=== PATIENT | male | born 1945 | race African-American/Black ===

== ENCOUNTER 2017-07-07 21:17 | Inpatient (IN) | payer MEDICARE, MEDICAID ==
[~2017-07-07] VITALS: Ht 170.2 cm; Wt 73.0 kg
[~2017-07-07 21:17] MED LIST: PHEN100C4 PO
[2017-07-07] MEDS ORDERED: SODIUM CHLORIDE 0.9% 1,000 ML IV ONE (22:57)
[2017-07-07 23:40] LABS: BASOPHILS % 0.4 % (0.0-2.0); EOSINOPHILS % 0.2 % (0.0-5.0); HEMATOCRIT. 37.7 % (42.0-52.0); HEMOGLOBIN. 12.7 g/dL (14.0-18.0); LYMPHOCYTES % 10.2 % (20.0-50.0); MEAN CORPUSCULAR HEMOGLOBIN 31.6 pg (28.0-32.0); MEAN CORPUSCULAR VOLUME 93.9 fL (80.0-94.0); MONOCYTES % 5.3 % (2.0-8.0); NEUTROPHILS % 83.9 % (40.0-76.0); RED BLOOD CELL COUNT 4.02 mill/uL (4.7-6.1); RED CELL DISTRIBUTION WIDTH 13.5 % (11.6-14.6)
[2017-07-07 23:54] LABS: CARBON DIOXIDE 29 mEq/L (21-32); CHLORIDE 102 mEq/L (98-107)
[2017-07-08 00:36] LABS: PLATELET 109 x1000/uL (130-400)
[2017-07-08] MEDS ORDERED: SODIUM CHLORIDE 0.9% 1,000 ML IV SCH (01:10)
[2017-07-08] MEDS ORDERED: PHENYTOIN SODIUM 500 MG in SODIUM CHLORIDE 0.9% 50 ML IV ONE (01:15)
[2017-07-08 06:50] VITALS: BP 157/76
[2017-07-08 08:00] VITALS: BP 121/79
[2017-07-08] MEDS ORDERED: LORAZEPAM 2MG/ML CPJ IV PRN (09:00)
[2017-07-08] MEDS ORDERED: HYDROCODONE/ACETAMINOPHEN 5/325MG TABLET PO PRN (09:00)
[2017-07-08] MEDS ORDERED: ACETAMINOPHEN 325MG TABLET PO PRN (09:00)
[2017-07-08] MEDS ORDERED: ONDANSETRON HCL 4MG/2ML VIAL IV PRN (09:00)
[2017-07-08] MEDS ORDERED: CLONIDINE 0.1MG TABLET PO PRN (09:00)
[2017-07-08] MEDS ORDERED: POTASSIUM CHLORIDE 20MEQ TABLET SR PO SCH (09:15)
[2017-07-08] MEDS: ASPIRIN 81MG EC TABLET PO SCH (11:44)
[2017-07-08] MEDS: SODIUM CHLORIDE 0.9% 1,000 ML IV SCH ×2 (11:44→21:51)
[2017-07-08] MEDS: ENOXAPARIN 40MG/0.4ML SYR SUBCUT SCH (11:45)
[2017-07-08 12:00] VITALS: BP 156/66
[2017-07-08 13:01] LABS: CREATINE KINASE 974 IU/L (39-308)
[2017-07-08] MEDS: PHENYTOIN SODIUM EXTENDED 100MG CAPSULE PO SCH ×2 (15:05→21:46)
[2017-07-08] MEDS ORDERED: HYDR12.529 PO (15:07)
[2017-07-08] MEDS ORDERED: AMLO10TA80 PO (15:08)
[2017-07-08] MEDS ORDERED: GABA-529 PO (15:08)
[2017-07-08] MEDS ORDERED: OMEP20CA10 PO (15:09)
[2017-07-08 16:00] VITALS: BP 138/73
[2017-07-08 20:00] VITALS: BP 140/80
[2017-07-09] VITALS: BP 146/86
[2017-07-09 04:00] VITALS: BP 124/73
[2017-07-09] MEDS: PHENYTOIN SODIUM EXTENDED 100MG CAPSULE PO SCH (06:20)
[2017-07-09 08:00] VITALS: BP 145/79
[2017-07-09] MEDS: ENOXAPARIN 40MG/0.4ML SYR SUBCUT SCH (08:47)
[2017-07-09] MEDS: ASPIRIN 81MG EC TABLET PO SCH (08:48)
[2017-07-09 09:12] LABS: BASOPHILS % 0.9 % (0.0-2.0); HEMOGLOBIN. 12.5 g/dL (14.0-18.0); LYMPHOCYTES % 32.2 % (20.0-50.0); MEAN CORPUSCULAR VOLUME 94.4 fL (80.0-94.0); MONOCYTES % 7.9 % (2.0-8.0); RED BLOOD CELL COUNT 3.92 mill/uL (4.7-6.1)
[2017-07-09 09:49] LABS: CARBON DIOXIDE 25 mEq/L (21-32); CHLORIDE 103 mEq/L (98-107)
[2017-07-09 10:41] LABS: MEAN PLATELET VOLUME 11.1 fl (7.4-10.4); PLATELET 97 x1000/uL (130-400)
[2017-07-09] MEDS ORDERED: POTASSIUM CHLORIDE 20MEQ TABLET SR PO NR (11:15)
[2017-07-09] MEDS: SODIUM CHLORIDE 0.9% 1,000 ML IV SCH (11:30)
[2017-07-09 11:36] VITALS: BP 137/86
[2017-07-09 12:00] VITALS: BP 137/86
== END 2017-07-09 13:45 | disposition home or self-care (01) | DRG 53 ==
LOC: ER 21:29 → 8WST 07-08 01:11 → EDBEDREQ 07-08 01:18 → EDBEDREQTM 07-08 01:18 → ENRESERV 07-08 03:22
PROVIDERS: ADMIT Hospitalist; ATTEND Hospitalist
DX: G40.409 Other generalized epilepsy and epileptic syndromes, not intractable, without status epilepticus (principal); I10 Essential (primary) hypertension; E87.6 Hypokalemia; Z86.73 Personal history of transient ischemic attack (TIA), and cerebral infarction without residual deficits; Z91.19 Patient's noncompliance with other medical treatment and regimen
CPT/HCPCS: 36415; 70450; 71010; 80053; 80185; 82550; 85025; 93005; 93970; 96374; 99285; J1165; J1650; J2060; J7030

== ENCOUNTER 2018-10-19 08:16 | Inpatient (IN) | payer MEDICARE, MEDICAID ==
[~2018-10-19] VITALS: Ht 182.9 cm; Wt 47.0 kg
[~2018-10-19 08:16] MED LIST changes: +AMLO10TA80 PO; +GABA-529 PO; +HYDR12.529 PO; +OMEP20CA10 PO
[2018-10-19] MEDS ORDERED: IPRATROPIUM/ALBUTEROL 0.5-3(2.5)MG/3ML NEB HHN ONE (08:30)
[2018-10-19] MEDS ORDERED: METHYLPREDNISOLONE SOD SUCC 125 MG/2 ML VIAL IV ONE (08:30)
[2018-10-19 09:06] LABS: CHLORIDE 103 mEq/L (98-107)
[2018-10-19 09:11] LABS: BASOPHILS % 0.1 % (0.0-2.0); HEMATOCRIT. 49.9 % (42.0-52.0); HEMOGLOBIN. 16.3 g/dL (14.0-18.0); LYMPHOCYTES % 10.2 % (20.0-50.0); MEAN CORPUSCULAR HEMOGLOBIN 30.4 pg (28.0-32.0); MEAN CORPUSCULAR VOLUME 92.6 fL (80.0-94.0); MEAN PLATELET VOLUME 10.3 fl (7.4-10.4); MONOCYTES % 8.2 % (2.0-8.0); NEUTROPHILS % 81.5 % (40.0-76.0); PLATELET 267 x1000/uL (130-400); RED BLOOD CELL COUNT 5.39 mill/uL (4.7-6.1); RED CELL DISTRIBUTION WIDTH 14.4 % (11.6-14.6)
[2018-10-19] MEDS ORDERED: LEVOFLOXACIN 750MG PREMIX 150 ML IV ONE (09:45)
[2018-10-19] MEDS ORDERED: MAGNESIUM/ALUMINUM HYDROXIDE/SIMETHICONE 30ML UDC PO PRN (12:30)
[2018-10-19] MEDS ORDERED: GUAIFENESIN 200MG/10ML SUGAR FREE UDC PO PRN (12:30)
[2018-10-19] MEDS ORDERED: NA PHOS,M-B/NA PHOS,DI-BA ENEMA 118ML PR PRN (12:30)
[2018-10-19] MEDS ORDERED: HYDROCODONE/ACETAMINOPHEN 5/325MG TABLET PO PRN (12:30)
[2018-10-19] MEDS ORDERED: HYDROMORPHONE HCL/PF 2MG/ML CPJ IV PRN (12:30)
[2018-10-19] MEDS ORDERED: CLONIDINE 0.1MG TABLET PO PRN (12:30)
[2018-10-19] MEDS ORDERED: SODIUM CHLORIDE 0.45% 1,000 ML IV SCH (13:00)
[2018-10-19] MEDS ORDERED: ACET-2178 PO (13:21)
[2018-10-19] MEDS ORDERED: D-ME473S8 MT (13:21)
[2018-10-19] MEDS ORDERED: AMLO10TA80 PO (13:21)
[2018-10-19] MEDS ORDERED: AMOX-405 PO (13:21)
[2018-10-19 13:26] VITALS: BP 138/81
[2018-10-19] MEDS ORDERED: PHEN100C4 PO (13:28)
[2018-10-19] MEDS ORDERED: ALBUTEROL (0.083%) 2.5MG/3ML NEB HHN PRN (14:45)
[2018-10-19 16:05] VITALS: BP 156/85
[2018-10-19] MEDS: ENOXAPARIN 40MG/0.4ML SYR SUBCUT SCH (17:44)
[2018-10-19] MEDS: DEXT 5%/0.45% NACL 1000ML 1,000 ML IV SCH (18:26)
[2018-10-19 20:00] VITALS: BP 181/91
[2018-10-19] MEDS: AMLODIPINE 5MG TABLET PO SCH (21:00)
[2018-10-19] MEDS: IPRATROPIUM/ALBUTEROL 0.5-3(2.5)MG/3ML NEB INH PRN (21:21)
[2018-10-19] MEDS ORDERED: HYDRALAZINE 20MG/ML VIAL IV PRN (22:30)
[2018-10-20] VITALS (72 sets, daily range): BP systolic 45–151; BP diastolic 25–89
[2018-10-20] MEDS: LORAZEPAM 2MG/ML CPJ IV PRN ×2 (00:46→05:29)
[2018-10-20] MEDS: IPRATROPIUM/ALBUTEROL 0.5-3(2.5)MG/3ML NEB HHN SCH ×2 (00:50→20:31)
[2018-10-20 01:04] LABS: CHLORIDE 104 mEq/L (98-107)
[2018-10-20] MEDS: IPRATROPIUM/ALBUTEROL 0.5-3(2.5)MG/3ML NEB INH PRN (02:25)
[2018-10-20 03:52] LABS: BG BASE EXCESS -0.4 mmol/L (-2.0-2.0); BG CARBOXYHEMOGLOBIN 0.5 % (0.5-1.5); BG DEOXYHEMOGLOBIN 6.1 % (0.0-5.0); BG FRACTION INSPIRED OXYGEN 32; BG METHEMOGLOBIN 0.7 % (0.0-1.5); BG OXYGEN SATURATION 93.8 % (92.0-98.5); BG OXYHEMOGLOBIN 92.7 % (94.0-97.0); BG PCO2 129.6 mmHg (35.0-45.0); BG PH 7.049 (7.350-7.450); BG PO2 99.1 mmHg (75.0-100.0); BG SAMPLE SITE LEFT RADIAL; BG TOTAL HEMOGLOBIN 15.8 g/dL (12.0-18.0); BG VENT MODE NASAL CANNULA
[2018-10-20 04:45] LABS: BG BASE EXCESS -3.2 mmol/L (-2.0-2.0); BG CARBOXYHEMOGLOBIN 0.3 % (0.5-1.5); BG DEOXYHEMOGLOBIN 5.9 % (0.0-5.0); BG FRACTION INSPIRED OXYGEN 50; BG HCO3 ACT 21.1 mmol/L (22.0-26.0); BG METHEMOGLOBIN 0.2 % (0.0-1.5); BG OXYGEN SATURATION 94.1 % (92.0-98.5); BG OXYHEMOGLOBIN 93.6 % (94.0-97.0); BG PCO2 35.6 mmHg (35.0-45.0); BG SAMPLE SITE RIGHT RADIAL; BG TIDAL VOLUME(mL) 400 mL; BG TOTAL HEMOGLOBIN 15.6 g/dL (12.0-18.0); BG VENT MODE VENT - A/C; BG VENT RATE 18 set
[2018-10-20 05:43] LABS: HEMATOCRIT. 46.7 % (42.0-52.0); HEMOGLOBIN. 15.2 g/dL (14.0-18.0); MEAN CORPUSCULAR HEMOGLOBIN 30.4 pg (28.0-32.0); RED BLOOD CELL COUNT 5.02 mill/uL (4.7-6.1); RED CELL DISTRIBUTION WIDTH 14.6 % (11.6-14.6)
[2018-10-20 05:53] LABS: CHLORIDE 104 mEq/L (98-107)
[2018-10-20 06:03] LABS: LDL CHOLESTEROL 55 mg/dL (5-100)
[2018-10-20 06:05] LABS: T4 FREE 1.54 ng/dL (0.76-1.46)
[2018-10-20 06:06] LABS: HDL CHOLESTEROL 50 mg/dL (40-59)
[2018-10-20] MEDS ORDERED: LEVETIRACETAM 500 MG in SODIUM CHLORIDE 0.9% 100 ML IV SCH (06:30)
[2018-10-20] MEDS: PROPOFOL 10MG/ML 100ML 100 ML IV PRN ×2 (07:57→15:45)
[2018-10-20 09:00] LABS: PLATELET ESTIMATE NORMAL
[2018-10-20 09:02] LABS: PLATELET 241 x1000/uL (130-400)
[2018-10-20] MEDS: ENOXAPARIN 40MG/0.4ML SYR SUBCUT SCH (09:37)
[2018-10-20] MEDS ORDERED: PROPOFOL 10MG/ML 100ML 100 ML IV PRN (11:00)
[2018-10-20 11:21] LABS: CREATINE KINASE 290 IU/L (39-308)
[2018-10-20] MEDS: ASPIRIN 81MG EC TABLET PO SCH (11:55)
[2018-10-20] MEDS: AMLODIPINE 5MG TABLET PO SCH ×2 (11:55→21:00)
[2018-10-20] MEDS: PANTOPRAZOLE SODIUM 40 MG/VIAL IV SCH (11:56)
[2018-10-20] MEDS: DEXT 5%/0.45% NACL 1000ML 1,000 ML IV SCH (11:57)
[2018-10-20] MEDS ORDERED: VANCOMYCIN 1 G PREMIX 200 ML IV NR (14:00)
[2018-10-20] MEDS: PIPERACILLIN/TAZ 2.25G PREMIX 50 ML IV SCH ×2 (14:41→22:55)
[2018-10-20] MEDS: BUDESONIDE 0.5MG/2ML NEB HHN SCH (15:47)
[2018-10-20] MEDS ORDERED: PHENYTOIN 100 MG/4 ML UDC NG NR (16:15)
[2018-10-20] MEDS: PHENYTOIN 100 MG/4 ML UDC NG SCH (22:55)
[2018-10-20] MEDS ORDERED: PHENYTOIN 100 MG/4 ML UDC ONE (22:58)
[2018-10-21] VITALS (81 sets, daily range): BP systolic 98–145; BP diastolic 54–84
[2018-10-21] MEDS: IPRATROPIUM/ALBUTEROL 0.5-3(2.5)MG/3ML NEB HHN SCH ×5 (00:51→20:23)
[2018-10-21] MEDS: PROPOFOL 10MG/ML 100ML 100 ML IV PRN ×2 (01:12→18:55)
[2018-10-21] MEDS: BUDESONIDE 0.5MG/2ML NEB HHN SCH ×2 (03:36→08:44)
[2018-10-21] MEDS: IPRATROPIUM/ALBUTEROL 0.5-3(2.5)MG/3ML NEB INH PRN (03:38)
[2018-10-21] MEDS: PHENYTOIN 100 MG/4 ML UDC NG SCH ×3 (06:37→22:28)
[2018-10-21] MEDS: VANCOMYCIN 750 MG PREMIX 150 ML IV SCH (06:38)
[2018-10-21] MEDS: PIPERACILLIN/TAZ 2.25G PREMIX 50 ML IV SCH ×2 (06:38→14:00)
[2018-10-21 07:03] LABS: HEMATOCRIT. 45.4 % (42.0-52.0); HEMOGLOBIN. 14.9 g/dL (14.0-18.0); MEAN CORPUSCULAR HEMOGLOBIN 30.5 pg (28.0-32.0); MEAN CORPUSCULAR VOLUME 93.2 fL (80.0-94.0); MEAN PLATELET VOLUME 10.4 fl (7.4-10.4); PLATELET 166 x1000/uL (130-400); RED BLOOD CELL COUNT 4.87 mill/uL (4.7-6.1)
[2018-10-21 07:08] LABS: CHLORIDE 106 mEq/L (98-107)
[2018-10-21 07:46] LABS: CLARITY URINE TURBID (CLEAR); COLOR URINE YELLOW (YELLOW); KETONES URINE NEGATIVE (NEGATIVE); LEUKOCYTE ESTERASE URINE NEGATIVE (NEGATIVE); NITRITE URINE NEGATIVE (NEGATIVE); OCCULT BLOOD URINE 3+ (NEGATIVE); PROTEIN URINE TRACE (NEGATIVE); SPECIFIC GRAVITY URINE 1.018 (1.005-1.030); UROBILINOGEN URINE 0.2 E.U./dL (0.2-1.0)
[2018-10-21 07:57] LABS: *AMPHETAMINES SCREEN URINE NEGATIVE (NEGATIVE); *BARBITURATES SCREEN URINE NEGATIVE (NEGATIVE); *BENZODIAZEPINES SCREEN URINE NEGATIVE (NEGATIVE); *COCAINE SCREEN URINE NEGATIVE (NEGATIVE); METHADONE URINE SCREEN NEGATIVE (NEGATIVE); OPIATES URINE SCREEN NEGATIVE (NEGATIVE)
[2018-10-21 07:58] LABS: CANNABINOID URINE SCREEN NEGATIVE (NEGATIVE); PHENCYCLIDINE URINE SCREEN NEGATIVE (NEGATIVE)
[2018-10-21 08:25] LABS: PLATELET ESTIMATE NORMAL
[2018-10-21 08:57] LABS: BG CARBOXYHEMOGLOBIN 0.5 % (0.5-1.5); BG DEOXYHEMOGLOBIN 0.6 % (0.0-5.0); BG FRACTION INSPIRED OXYGEN 60; BG HCO3 ACT 26.4 mmol/L (22.0-26.0); BG METHEMOGLOBIN 0.5 % (0.0-1.5); BG OXYGEN SATURATION 99.4 % (92.0-98.5); BG OXYHEMOGLOBIN 98.4 % (94.0-97.0); BG PCO2 36.2 mmHg (35.0-45.0); BG PO2 191.9 mmHg (75.0-100.0); BG SAMPLE SITE RIGHT BRACHIAL; BG TIDAL VOLUME(mL) 400 mL; BG TOTAL HEMOGLOBIN 14.2 g/dL (12.0-18.0); BG VENT MODE VENT - A/C; BG VENT RATE 18 set
[2018-10-21] MEDS: ASPIRIN 81MG EC TABLET PO SCH (09:32)
[2018-10-21] MEDS: PANTOPRAZOLE SODIUM 40 MG/VIAL IV SCH (09:32)
[2018-10-21] MEDS: AMLODIPINE 5MG TABLET PO SCH ×2 (09:32→22:28)
[2018-10-21] MEDS: DEXT 5%/0.45% NACL 1000ML 1,000 ML IV SCH ×2 (09:32→22:28)
[2018-10-21] MEDS: ENOXAPARIN 40MG/0.4ML SYR SUBCUT SCH (09:32)
[2018-10-21] MEDS: THIAMINE HCL 100MG TABLET GT SCH (14:01)
[2018-10-21] MEDS: PIPERACILLIN/TAZ 3.375G PREMIX 50 ML IV SCH (22:27)
[2018-10-22] VITALS (46 sets, daily range): BP systolic 94–148; BP diastolic 52–85
[2018-10-22] MEDS: PROPOFOL 10MG/ML 100ML 100 ML IV PRN ×4 (01:11→21:55)
[2018-10-22] MEDS: VANCOMYCIN 750 MG PREMIX 150 ML IV SCH ×2 (01:11→14:30)
[2018-10-22] MEDS: IPRATROPIUM/ALBUTEROL 0.5-3(2.5)MG/3ML NEB HHN SCH ×6 (03:27→20:28)
[2018-10-22] MEDS: PIPERACILLIN/TAZ 3.375G PREMIX 50 ML IV SCH ×3 (05:18→21:52)
[2018-10-22] MEDS: ACETAMINOPHEN 325MG TABLET PO PRN (05:20)
[2018-10-22] MEDS: PHENYTOIN 100 MG/4 ML UDC NG SCH ×3 (05:51→21:51)
[2018-10-22 06:50] LABS: BASOPHILS % 0.2 % (0.0-2.0); EOSINOPHILS % 0.2 % (0.0-5.0); HEMATOCRIT. 38.8 % (42.0-52.0); HEMOGLOBIN. 12.8 g/dL (14.0-18.0); LYMPHOCYTES % 8.4 % (20.0-50.0); MEAN CORPUSCULAR HEMOGLOBIN 30.3 pg (28.0-32.0); MEAN CORPUSCULAR VOLUME 92.1 fL (80.0-94.0); MEAN PLATELET VOLUME 10.8 fl (7.4-10.4); MONOCYTES % 6.8 % (2.0-8.0); NEUTROPHILS % 84.4 % (40.0-76.0); PLATELET 195 x1000/uL (130-400); RED BLOOD CELL COUNT 4.22 mill/uL (4.7-6.1); RED CELL DISTRIBUTION WIDTH 14.8 % (11.6-14.6)
[2018-10-22 07:00] LABS: CHLORIDE 108 mEq/L (98-107)
[2018-10-22 07:07] LABS: PHOSPHORUS 1.4 mg/dL (2.5-4.9)
[2018-10-22 08:18] LABS: BG CARBOXYHEMOGLOBIN 0.3 % (0.5-1.5); BG FRACTION INSPIRED OXYGEN 50; BG HCO3 ACT 24.3 mmol/L (22.0-26.0); BG METHEMOGLOBIN 0.3 % (0.0-1.5); BG OXYHEMOGLOBIN 98.4 % (94.0-97.0); BG PCO2 34.9 mmHg (35.0-45.0); BG PH 7.461 (7.350-7.450); BG PO2 157.7 mmHg (75.0-100.0); BG SAMPLE SITE RIGHT BRACHIAL; BG TIDAL VOLUME(mL) 400 mL; BG VENT MODE VENT - A/C; BG VENT RATE 18 set
[2018-10-22] MEDS: ENOXAPARIN 40MG/0.4ML SYR SUBCUT SCH (09:29)
[2018-10-22] MEDS: PANTOPRAZOLE SODIUM 40 MG/VIAL IV SCH (09:29)
[2018-10-22] MEDS: AMLODIPINE 5MG TABLET PO SCH (09:29)
[2018-10-22] MEDS: ASPIRIN 81MG EC TABLET PO SCH (09:29)
[2018-10-22] MEDS: THIAMINE HCL 100MG TABLET GT SCH (09:29)
[2018-10-22] MEDS ORDERED: POTASSIUM CHLORIDE 20MEQ/PACKET NG NR (12:15)
[2018-10-22] MEDS: BUDESONIDE 0.5MG/2ML NEB HHN SCH ×3 (12:42→20:28)
[2018-10-22] MEDS ORDERED: POTASSIUM PHOS,M-BASIC-D-BASIC 20 MMOL in DEXT 5% WATER 243.3333 ML IV NR (13:30)
[2018-10-23] VITALS (42 sets, daily range): BP systolic 101–190; BP diastolic 54–107
[2018-10-23] MEDS: IPRATROPIUM/ALBUTEROL 0.5-3(2.5)MG/3ML NEB HHN SCH ×6 (00:26→20:14)
[2018-10-23] MEDS: AMLODIPINE 5MG TABLET PO SCH ×3 (03:29→22:22)
[2018-10-23 03:31] LABS: BG BASE EXCESS 1.8 mmol/L (-2.0-2.0); BG CARBOXYHEMOGLOBIN 0.5 % (0.5-1.5); BG DEOXYHEMOGLOBIN 1.9 % (0.0-5.0); BG FRACTION INSPIRED OXYGEN 100; BG HCO3 ACT 28.5 mmol/L (22.0-26.0); BG METHEMOGLOBIN 0.5 % (0.0-1.5); BG OXYGEN SATURATION 98.1 % (92.0-98.5); BG OXYHEMOGLOBIN 97.1 % (94.0-97.0); BG PCO2 52.6 mmHg (35.0-45.0); BG PH 7.351 (7.350-7.450); BG PO2 112.5 mmHg (75.0-100.0); BG SAMPLE SITE RIGHT BRACHIAL; BG TIDAL VOLUME(mL) 400 mL; BG TOTAL HEMOGLOBIN 14.3 g/dL (12.0-18.0); BG VENT MODE VENT - A/C; BG VENT RATE 14 set
[2018-10-23] MEDS: DEXT 5%/0.45% NACL 1000ML 1,000 ML IV SCH ×3 (03:31→22:23)
[2018-10-23] MEDS: PROPOFOL 10MG/ML 100ML 100 ML IV PRN ×3 (03:34→19:52)
[2018-10-23] MEDS: VANCOMYCIN 750 MG PREMIX 150 ML IV SCH ×2 (03:55→15:25)
[2018-10-23 05:53] LABS: HEMATOCRIT. 42.9 % (42.0-52.0); HEMOGLOBIN. 13.9 g/dL (14.0-18.0); MEAN CORPUSCULAR HEMOGLOBIN 30.4 pg (28.0-32.0); MEAN CORPUSCULAR VOLUME 93.7 fL (80.0-94.0); RED BLOOD CELL COUNT 4.57 mill/uL (4.7-6.1); RED CELL DISTRIBUTION WIDTH 15.1 % (11.6-14.6)
[2018-10-23] MEDS: PHENYTOIN 100 MG/4 ML UDC NG SCH ×3 (06:13→22:22)
[2018-10-23] MEDS: PIPERACILLIN/TAZ 3.375G PREMIX 50 ML IV SCH ×3 (06:14→22:23)
[2018-10-23 06:55] LABS: CHLORIDE 104 mEq/L (98-107)
[2018-10-23 07:06] LABS: PHOSPHORUS 2.1 mg/dL (2.5-4.9)
[2018-10-23] MEDS: ASPIRIN 81MG EC TABLET PO SCH (09:24)
[2018-10-23] MEDS: THIAMINE HCL 100MG TABLET GT SCH (09:24)
[2018-10-23] MEDS: PANTOPRAZOLE SODIUM 40 MG/VIAL IV SCH (09:24)
[2018-10-23] MEDS: ENOXAPARIN 40MG/0.4ML SYR SUBCUT SCH (09:24)
[2018-10-23 10:21] LABS: BG BASE EXCESS 5.7 mmol/L (-2.0-2.0); BG CARBOXYHEMOGLOBIN 0.5 % (0.5-1.5); BG DEOXYHEMOGLOBIN 0.8 % (0.0-5.0); BG FRACTION INSPIRED OXYGEN 60; BG METHEMOGLOBIN 0.4 % (0.0-1.5); BG OXYGEN SATURATION 99.2 % (92.0-98.5); BG OXYHEMOGLOBIN 98.3 % (94.0-97.0); BG PCO2 42.3 mmHg (35.0-45.0); BG PH 7.469 (7.350-7.450); BG PO2 148.4 mmHg (75.0-100.0); BG PRESSURE SUPPORT 15; BG SAMPLE SITE RIGHT BRACHIAL; BG TIDAL VOLUME(mL) 400 mL; BG TOTAL HEMOGLOBIN 14.1 g/dL (12.0-18.0); BG VENT MODE VENT - SIMV; BG VENT RATE 10 set
[2018-10-23 10:48] LABS: PLATELET ESTIMATE NORMAL
[2018-10-23 10:49] LABS: MEAN PLATELET VOLUME 11.3 fl (7.4-10.4); PLATELET 194 x1000/uL (130-400)
[2018-10-23] MEDS ORDERED: POTASSIUM CHLORIDE 20MEQ/PACKET PO NR (11:45)
[2018-10-23] MEDS: BUDESONIDE 0.5MG/2ML NEB HHN SCH ×2 (12:00→20:19)
[2018-10-23] MEDS ORDERED: POTASSIUM PHOS,M-BASIC-D-BASIC 10 MMOL in DEXT 5% WATER 246.6667 ML IV NR (16:00)
[2018-10-23] MEDS ORDERED: ETOMIDATE 2MG/ML 10ML VIAL IV ONE (16:10)
[2018-10-23] MEDS ORDERED: SODIUM CHLORIDE 0.9% 10ML VIAL ONE (16:10)
[2018-10-23] MEDS: ACETYLCYSTEINE 100MG/ML 10% VIAL 4ML INH SCH (16:28)
[2018-10-24] VITALS (46 sets, daily range): BP systolic 104–138; BP diastolic 51–79
[2018-10-24] MEDS: IPRATROPIUM/ALBUTEROL 0.5-3(2.5)MG/3ML NEB HHN SCH ×6 (00:32→21:09)
[2018-10-24] MEDS: ACETYLCYSTEINE 100MG/ML 10% VIAL 4ML INH SCH ×3 (00:32→16:16)
[2018-10-24] MEDS: VANCOMYCIN 750 MG PREMIX 150 ML IV SCH ×2 (02:03→15:50)
[2018-10-24] MEDS: PROPOFOL 10MG/ML 100ML 100 ML IV PRN ×3 (02:34→17:41)
[2018-10-24] MEDS: PIPERACILLIN/TAZ 3.375G PREMIX 50 ML IV SCH ×3 (06:09→21:32)
[2018-10-24] MEDS: PHENYTOIN 100 MG/4 ML UDC NG SCH ×3 (06:09→21:35)
[2018-10-24 06:35] LABS: BASOPHILS % 0.3 % (0.0-2.0); EOSINOPHILS % 1.6 % (0.0-5.0); HEMATOCRIT. 38.9 % (42.0-52.0); HEMOGLOBIN. 12.8 g/dL (14.0-18.0); MEAN CORPUSCULAR HEMOGLOBIN 30.2 pg (28.0-32.0); MEAN PLATELET VOLUME 11.4 fl (7.4-10.4); MONOCYTES % 6.8 % (2.0-8.0); NEUTROPHILS % 81.3 % (40.0-76.0); PLATELET 202 x1000/uL (130-400); RED BLOOD CELL COUNT 4.23 mill/uL (4.7-6.1); RED CELL DISTRIBUTION WIDTH 14.7 % (11.6-14.6)
[2018-10-24 06:48] LABS: CHLORIDE 104 mEq/L (98-107)
[2018-10-24 06:59] LABS: PHOSPHORUS 1.6 mg/dL (2.5-4.9)
[2018-10-24 08:21] LABS: BG BASE EXCESS 6.1 mmol/L (-2.0-2.0); BG CARBOXYHEMOGLOBIN 0.6 % (0.5-1.5); BG DEOXYHEMOGLOBIN 1.3 % (0.0-5.0); BG FRACTION INSPIRED OXYGEN 40; BG METHEMOGLOBIN 0.4 % (0.0-1.5); BG OXYGEN SATURATION 98.7 % (92.0-98.5); BG OXYHEMOGLOBIN 97.7 % (94.0-97.0); BG PCO2 40.3 mmHg (35.0-45.0); BG PH 7.489 (7.350-7.450); BG PO2 124.3 mmHg (75.0-100.0); BG SAMPLE SITE RIGHT RADIAL; BG TIDAL VOLUME(mL) 400 mL; BG TOTAL HEMOGLOBIN 13.6 g/dL (12.0-18.0); BG VENT MODE VENT - A/C; BG VENT RATE 10 set
[2018-10-24] MEDS: ASPIRIN 81MG EC TABLET PO SCH (08:58)
[2018-10-24] MEDS: THIAMINE HCL 100MG TABLET GT SCH (08:58)
[2018-10-24] MEDS: AMLODIPINE 5MG TABLET PO SCH ×2 (08:58→21:32)
[2018-10-24] MEDS: ENOXAPARIN 40MG/0.4ML SYR SUBCUT SCH (08:58)
[2018-10-24] MEDS: PANTOPRAZOLE SODIUM 40 MG/VIAL IV SCH (08:58)
[2018-10-24] MEDS ORDERED: POTASSIUM PHOS,M-BASIC-D-BASIC 20 MMOL in DEXT 5% WATER 243.3333 ML IV SCH (10:00)
[2018-10-24] MEDS: ATROPINE SULFATE 1% OPHTH 2ML SL SCH ×2 (17:40→21:35)
[2018-10-25] VITALS (68 sets, daily range): BP systolic 82–189; BP diastolic 47–107
[2018-10-25] MEDS: ACETYLCYSTEINE 100MG/ML 10% VIAL 4ML INH SCH ×2 (00:13→13:50)
[2018-10-25] MEDS: IPRATROPIUM/ALBUTEROL 0.5-3(2.5)MG/3ML NEB HHN SCH ×6 (00:13→16:40)
[2018-10-25] MEDS: PROPOFOL 10MG/ML 100ML 100 ML IV PRN ×4 (02:05→19:37)
[2018-10-25] MEDS: VANCOMYCIN 750 MG PREMIX 150 ML IV SCH (02:58)
[2018-10-25] MEDS: PIPERACILLIN/TAZ 3.375G PREMIX 50 ML IV SCH ×2 (05:55→13:43)
[2018-10-25] MEDS: PHENYTOIN 100 MG/4 ML UDC NG SCH ×3 (05:55→21:52)
[2018-10-25] MEDS: ATROPINE SULFATE 1% OPHTH 2ML SL SCH ×3 (05:56→22:05)
[2018-10-25 06:10] LABS: BASOPHILS % 0.4 % (0.0-2.0); EOSINOPHILS % 1.4 % (0.0-5.0); HEMATOCRIT. 42.8 % (42.0-52.0); HEMOGLOBIN. 13.8 g/dL (14.0-18.0); LYMPHOCYTES % 12.8 % (20.0-50.0); MEAN CORPUSCULAR HEMOGLOBIN 30.2 pg (28.0-32.0); MEAN CORPUSCULAR VOLUME 93.6 fL (80.0-94.0); MEAN PLATELET VOLUME 10.3 fl (7.4-10.4); MONOCYTES % 10.1 % (2.0-8.0); NEUTROPHILS % 75.3 % (40.0-76.0); PLATELET 174 x1000/uL (130-400); RED BLOOD CELL COUNT 4.57 mill/uL (4.7-6.1); RED CELL DISTRIBUTION WIDTH 14.9 % (11.6-14.6)
[2018-10-25 06:31] LABS: CHLORIDE 104 mEq/L (98-107)
[2018-10-25] MEDS: PANTOPRAZOLE SODIUM 40 MG/VIAL IV SCH (08:06)
[2018-10-25] MEDS: ENOXAPARIN 40MG/0.4ML SYR SUBCUT SCH (08:06)
[2018-10-25] MEDS: AMLODIPINE 5MG TABLET PO SCH ×2 (08:06→21:00)
[2018-10-25] MEDS: ASPIRIN 81MG EC TABLET PO SCH (08:07)
[2018-10-25] MEDS: THIAMINE HCL 100MG TABLET GT SCH (08:07)
[2018-10-25 08:55] LABS: BG BASE EXCESS 8.1 mmol/L (-2.0-2.0); BG CARBOXYHEMOGLOBIN 0.1 % (0.5-1.5); BG DEOXYHEMOGLOBIN 1.4 % (0.0-5.0); BG FRACTION INSPIRED OXYGEN 40; BG HCO3 ACT 33.1 mmol/L (22.0-26.0); BG METHEMOGLOBIN 0.4 % (0.0-1.5); BG OXYGEN SATURATION 98.6 % (92.0-98.5); BG OXYHEMOGLOBIN 98.1 % (94.0-97.0); BG PH 7.457 (7.350-7.450); BG PO2 124.6 mmHg (75.0-100.0); BG SAMPLE SITE RIGHT BRACHIAL; BG TIDAL VOLUME(mL) 400 mL; BG TOTAL HEMOGLOBIN 12.5 g/dL (12.0-18.0); BG VENT MODE VENT - A/C; BG VENT RATE 10 set
[2018-10-25] MEDS ORDERED: POTASSIUM PHOS,M-BASIC-D-BASIC 20 MMOL in DEXT 5% WATER 243.3333 ML IV SCH (09:30)
[2018-10-25] MEDS ORDERED: MAGNESIUM 2 G PREMIX 50 ML IV SCH (09:30)
[2018-10-25 11:33] LABS: BG BASE EXCESS 8.7 mmol/L (-2.0-2.0); BG CARBOXYHEMOGLOBIN 0.2 % (0.5-1.5); BG DEOXYHEMOGLOBIN 1.5 % (0.0-5.0); BG FRACTION INSPIRED OXYGEN 40; BG METHEMOGLOBIN 0.4 % (0.0-1.5); BG OXYGEN SATURATION 98.5 % (92.0-98.5); BG OXYHEMOGLOBIN 97.9 % (94.0-97.0); BG PCO2 49.4 mmHg (35.0-45.0); BG PH 7.455 (7.350-7.450); BG PO2 117.7 mmHg (75.0-100.0); BG PRESSURE SUPPORT 8; BG SAMPLE SITE RIGHT BRACHIAL; BG VENT MODE VENT - CPAP
[2018-10-25] MEDS ORDERED: RACEPINEPHRINE 2.25% 0.5ML NEB VIAL HHN SCH (13:30)
[2018-10-25] MEDS ORDERED: VECURONIUM BROMIDE 10 MG/VIAL IV ONE (14:04)
[2018-10-25] MEDS ORDERED: SUCCINYLCHOLINE CHLORIDE 200MG/10ML IV ONE ×2 (14:04→15:34)
[2018-10-25] MEDS ORDERED: SODIUM CHLORIDE 0.9% 10ML VIAL ONE (14:04)
[2018-10-25] MEDS ORDERED: ETOMIDATE 2MG/ML 10ML VIAL IV ONE ×2 (14:04→15:34)
[2018-10-25] MEDS ORDERED: METHYLPREDNISOLONE SOD SUCC 125 MG/2 ML VIAL ONE (14:08)
[2018-10-25] MEDS ORDERED: METHYLPREDNISOLONE SOD SUCC 125 MG/2 ML VIAL IV NR (14:15)
[2018-10-25] MEDS ORDERED: EPINEPHRINE 0.1MG/ML (1:10,000) 10ML SYR ONE (15:46)
[2018-10-25 15:49] LABS: BG CARBOXYHEMOGLOBIN 0.7 % (0.5-1.5); BG DEOXYHEMOGLOBIN 17.2 % (0.0-5.0); BG FRACTION INSPIRED OXYGEN 40; BG HCO3 ACT 29.6 mmol/L (22.0-26.0); BG METHEMOGLOBIN 0.4 % (0.0-1.5); BG OXYGEN SATURATION 82.6 % (92.0-98.5); BG OXYHEMOGLOBIN 81.7 % (94.0-97.0); BG PCO2 43.4 mmHg (35.0-45.0); BG PH 7.452 (7.350-7.450); BG PO2 44.2 mmHg (75.0-100.0); BG SAMPLE SITE LEFT RADIAL; BG TIDAL VOLUME(mL) 400 mL; BG TOTAL HEMOGLOBIN 14.2 g/dL (12.0-18.0); BG VENT MODE VENT - A/C; BG VENT RATE 14 set
[2018-10-25] MEDS ORDERED: NOREPINEPHRINE 8 MG in DEXT 5% WATER 242 ML IV PRN (16:00)
[2018-10-25 16:37] LABS: BG BASE EXCESS 6.1 mmol/L (-2.0-2.0); BG CARBOXYHEMOGLOBIN 0.1 % (0.5-1.5); BG DEOXYHEMOGLOBIN 0.6 % (0.0-5.0); BG FRACTION INSPIRED OXYGEN 100; BG HCO3 ACT 29.8 mmol/L (22.0-26.0); BG METHEMOGLOBIN 0.1 % (0.0-1.5); BG OXYGEN SATURATION 99.4 % (92.0-98.5); BG OXYHEMOGLOBIN 99.2 % (94.0-97.0); BG PCO2 39.5 mmHg (35.0-45.0); BG PH 7.495 (7.350-7.450); BG PO2 237.3 mmHg (75.0-100.0); BG SAMPLE SITE LEFT BRACHIAL; BG TIDAL VOLUME(mL) 500 mL; BG TOTAL HEMOGLOBIN 13.2 g/dL (12.0-18.0); BG VENT MODE VENT - A/C; BG VENT RATE 14 set
[2018-10-25] MEDS: IPRATROPIUM/ALBUTEROL 0.5-3(2.5)MG/3ML NEB INH PRN (20:43)
[2018-10-25] MEDS: CEFTRIAXONE 2 G in DEXTROSE 5% WATER 50 ML IV SCH (22:05)
[2018-10-26] VITALS (67 sets, daily range): BP systolic 75–136; BP diastolic 42–75
[2018-10-26] MEDS: ACETYLCYSTEINE 100MG/ML 10% VIAL 4ML INH SCH ×3 (00:33→16:53)
[2018-10-26] MEDS: IPRATROPIUM/ALBUTEROL 0.5-3(2.5)MG/3ML NEB HHN SCH ×6 (00:33→20:15)
[2018-10-26] MEDS: PROPOFOL 10MG/ML 100ML 100 ML IV PRN ×3 (03:37→21:22)
[2018-10-26] MEDS: ATROPINE SULFATE 1% OPHTH 2ML SL SCH ×3 (05:17→21:23)
[2018-10-26] MEDS: PHENYTOIN 100 MG/4 ML UDC NG SCH ×3 (05:17→21:23)
[2018-10-26 06:38] LABS: CHLORIDE 101 mEq/L (98-107)
[2018-10-26 06:45] LABS: PHOSPHORUS 2.4 mg/dL (2.5-4.9)
[2018-10-26 06:53] LABS: BASOPHILS % 0.4 % (0.0-2.0); EOSINOPHILS % 0.4 % (0.0-5.0); HEMATOCRIT. 40.6 % (42.0-52.0); HEMOGLOBIN. 13.3 g/dL (14.0-18.0); LYMPHOCYTES % 15.2 % (20.0-50.0); MEAN CORPUSCULAR HEMOGLOBIN 30.1 pg (28.0-32.0); MEAN CORPUSCULAR VOLUME 91.7 fL (80.0-94.0); MEAN PLATELET VOLUME 10.6 fl (7.4-10.4); MONOCYTES % 8.9 % (2.0-8.0); NEUTROPHILS % 75.1 % (40.0-76.0); PLATELET 263 x1000/uL (130-400); RED BLOOD CELL COUNT 4.43 mill/uL (4.7-6.1); RED CELL DISTRIBUTION WIDTH 14.5 % (11.6-14.6)
[2018-10-26] MEDS ORDERED: POTASSIUM PHOS,M-BASIC-D-BASIC 15 MMOL in DEXT 5% WATER 245 ML IV NR (08:00)
[2018-10-26] MEDS: PANTOPRAZOLE SODIUM 40 MG/VIAL IV SCH (08:29)
[2018-10-26] MEDS: ASPIRIN 81MG EC TABLET PO SCH (08:30)
[2018-10-26] MEDS: THIAMINE HCL 100MG TABLET GT SCH (08:30)
[2018-10-26] MEDS: AMLODIPINE 5MG TABLET PO SCH ×2 (08:30→21:00)
[2018-10-26] MEDS: ENOXAPARIN 40MG/0.4ML SYR SUBCUT SCH (08:30)
[2018-10-26 08:49] LABS: BG BASE EXCESS 8.8 mmol/L (-2.0-2.0); BG CARBOXYHEMOGLOBIN 0.3 % (0.5-1.5); BG DEOXYHEMOGLOBIN 1.1 % (0.0-5.0); BG FRACTION INSPIRED OXYGEN 50; BG METHEMOGLOBIN 0.4 % (0.0-1.5); BG OXYGEN SATURATION 98.9 % (92.0-98.5); BG OXYHEMOGLOBIN 98.2 % (94.0-97.0); BG PCO2 48.5 mmHg (35.0-45.0); BG PH 7.463 (7.350-7.450); BG PO2 150.3 mmHg (75.0-100.0); BG SAMPLE SITE RIGHT RADIAL; BG TIDAL VOLUME(mL) 500 mL; BG TOTAL HEMOGLOBIN 13.2 g/dL (12.0-18.0); BG VENT MODE VENT - A/C; BG VENT RATE 12 set
[2018-10-26] MEDS: METHYLPREDNISOLONE SOD SUCC 125 MG/2 ML VIAL IV SCH ×3 (10:25→23:40)
[2018-10-26] MEDS: CEFTRIAXONE 2 G in DEXTROSE 5% WATER 50 ML IV SCH (21:23)
[2018-10-27] VITALS (59 sets, daily range): BP systolic 91–137; BP diastolic 51–75
[2018-10-27] MEDS: ACETYLCYSTEINE 100MG/ML 10% VIAL 4ML INH SCH ×3 (00:04→16:45)
[2018-10-27] MEDS: IPRATROPIUM/ALBUTEROL 0.5-3(2.5)MG/3ML NEB HHN SCH ×6 (00:04→20:20)
[2018-10-27] MEDS: PROPOFOL 10MG/ML 100ML 100 ML IV PRN ×3 (03:24→18:41)
[2018-10-27] MEDS: METHYLPREDNISOLONE SOD SUCC 125 MG/2 ML VIAL IV SCH ×3 (05:24→18:39)
[2018-10-27] MEDS: PHENYTOIN 100 MG/4 ML UDC NG SCH ×3 (05:25→21:53)
[2018-10-27] MEDS: ATROPINE SULFATE 1% OPHTH 2ML SL SCH ×3 (05:25→21:53)
[2018-10-27 07:43] LABS: BASOPHILS % 0.3 % (0.0-2.0); EOSINOPHILS % 0.1 % (0.0-5.0); HEMOGLOBIN. 11.7 g/dL (14.0-18.0); LYMPHOCYTES % 10.4 % (20.0-50.0); MEAN CORPUSCULAR HEMOGLOBIN 29.7 pg (28.0-32.0); MEAN CORPUSCULAR VOLUME 91.7 fL (80.0-94.0); MEAN PLATELET VOLUME 9.1 fl (7.4-10.4); NEUTROPHILS % 86.2 % (40.0-76.0); PLATELET 300 x1000/uL (130-400); RED BLOOD CELL COUNT 3.93 mill/uL (4.7-6.1); RED CELL DISTRIBUTION WIDTH 14.2 % (11.6-14.6)
[2018-10-27 07:51] LABS: CHLORIDE 102 mEq/L (98-107)
[2018-10-27 07:57] LABS: PHOSPHORUS 3.5 mg/dL (2.5-4.9)
[2018-10-27 08:55] LABS: BG BASE EXCESS 5.6 mmol/L (-2.0-2.0); BG CARBOXYHEMOGLOBIN 0.3 % (0.5-1.5); BG FRACTION INSPIRED OXYGEN 40; BG HCO3 ACT 30.1 mmol/L (22.0-26.0); BG METHEMOGLOBIN 0.4 % (0.0-1.5); BG OXYHEMOGLOBIN 98.3 % (94.0-97.0); BG PCO2 43.7 mmHg (35.0-45.0); BG PH 7.456 (7.350-7.450); BG PO2 147.9 mmHg (75.0-100.0); BG SAMPLE SITE RIGHT RADIAL; BG TIDAL VOLUME(mL) 450 mL; BG TOTAL HEMOGLOBIN 11.7 g/dL (12.0-18.0); BG VENT MODE VENT - A/C; BG VENT RATE 10 set
[2018-10-27] MEDS: ENOXAPARIN 40MG/0.4ML SYR SUBCUT SCH (10:12)
[2018-10-27] MEDS: PANTOPRAZOLE SODIUM 40 MG/VIAL IV SCH (10:12)
[2018-10-27] MEDS: AMLODIPINE 5MG TABLET PO SCH ×2 (10:12→21:00)
[2018-10-27] MEDS: ASPIRIN 81MG TABLET NG SCH (10:13)
[2018-10-27] MEDS: THIAMINE HCL 100MG TABLET GT SCH (10:20)
[2018-10-27] MEDS: CEFTRIAXONE 2 G in DEXTROSE 5% WATER 50 ML IV SCH (21:53)
[2018-10-28] VITALS (47 sets, daily range): BP systolic 96–162; BP diastolic 50–86
[2018-10-28] MEDS: METHYLPREDNISOLONE SOD SUCC 125 MG/2 ML VIAL IV SCH ×4 (00:03→18:01)
[2018-10-28] MEDS: PROPOFOL 10MG/ML 100ML 100 ML IV PRN ×2 (00:03→08:59)
[2018-10-28] MEDS: ACETYLCYSTEINE 100MG/ML 10% VIAL 4ML INH SCH ×3 (00:15→14:00)
[2018-10-28] MEDS: IPRATROPIUM/ALBUTEROL 0.5-3(2.5)MG/3ML NEB HHN SCH ×6 (00:15→19:29)
[2018-10-28 05:39] LABS: CHLORIDE 102 mEq/L (98-107)
[2018-10-28 05:43] LABS: BASOPHILS % 0.1 % (0.0-2.0); HEMATOCRIT. 36.6 % (42.0-52.0); HEMOGLOBIN. 11.9 g/dL (14.0-18.0); LYMPHOCYTES % 9.7 % (20.0-50.0); MEAN CORPUSCULAR HEMOGLOBIN 29.9 pg (28.0-32.0); MEAN CORPUSCULAR VOLUME 92.2 fL (80.0-94.0); MEAN PLATELET VOLUME 9.4 fl (7.4-10.4); MONOCYTES % 4.9 % (2.0-8.0); NEUTROPHILS % 85.3 % (40.0-76.0); PLATELET 324 x1000/uL (130-400); RED BLOOD CELL COUNT 3.97 mill/uL (4.7-6.1); RED CELL DISTRIBUTION WIDTH 14.2 % (11.6-14.6)
[2018-10-28] MEDS: PHENYTOIN 100 MG/4 ML UDC NG SCH ×3 (06:05→21:52)
[2018-10-28] MEDS: ATROPINE SULFATE 1% OPHTH 2ML SL SCH ×3 (06:06→21:53)
[2018-10-28 08:08] LABS: BG BASE EXCESS 7.4 mmol/L (-2.0-2.0); BG CARBOXYHEMOGLOBIN 0.1 % (0.5-1.5); BG DEOXYHEMOGLOBIN 0.9 % (0.0-5.0); BG FRACTION INSPIRED OXYGEN 40; BG HCO3 ACT 31.9 mmol/L (22.0-26.0); BG METHEMOGLOBIN 0.5 % (0.0-1.5); BG OXYGEN SATURATION 99.1 % (92.0-98.5); BG OXYHEMOGLOBIN 98.5 % (94.0-97.0); BG PCO2 44.4 mmHg (35.0-45.0); BG PH 7.474 (7.350-7.450); BG PO2 158.3 mmHg (75.0-100.0); BG SAMPLE SITE LEFT BRACHIAL; BG TIDAL VOLUME(mL) 450 mL; BG TOTAL HEMOGLOBIN 11.7 g/dL (12.0-18.0); BG VENT MODE VENT - A/C; BG VENT RATE 10 set
[2018-10-28] MEDS: PANTOPRAZOLE SODIUM 40 MG/VIAL IV SCH (10:15)
[2018-10-28] MEDS: DOCUSATE SODIUM 100MG CAPSULE PO PRN (10:16)
[2018-10-28] MEDS: AMLODIPINE 5MG TABLET PO SCH ×2 (10:16→21:50)
[2018-10-28] MEDS: THIAMINE HCL 100MG TABLET GT SCH (10:17)
[2018-10-28] MEDS: ASPIRIN 81MG TABLET NG SCH (10:17)
[2018-10-28] MEDS: ENOXAPARIN 40MG/0.4ML SYR SUBCUT SCH (10:17)
[2018-10-28] MEDS: CEFTRIAXONE 2 G in DEXTROSE 5% WATER 50 ML IV SCH (21:50)
[2018-10-28] MEDS: ONDANSETRON HCL 4MG/2ML INJ IV PRN (21:52)
[2018-10-29] VITALS (48 sets, daily range): BP systolic 101–150; BP diastolic 51–86
[2018-10-29] MEDS: PROPOFOL 10MG/ML 100ML 100 ML IV PRN ×4 (00:04→23:45)
[2018-10-29] MEDS: METHYLPREDNISOLONE SOD SUCC 125 MG/2 ML VIAL IV SCH ×5 (00:06→23:45)
[2018-10-29] MEDS: IPRATROPIUM/ALBUTEROL 0.5-3(2.5)MG/3ML NEB HHN SCH ×6 (00:11→20:58)
[2018-10-29] MEDS: ATROPINE SULFATE 1% OPHTH 2ML SL SCH ×3 (05:41→21:24)
[2018-10-29] MEDS: PHENYTOIN 100 MG/4 ML UDC NG SCH ×3 (05:41→21:23)
[2018-10-29 07:06] LABS: BG CARBOXYHEMOGLOBIN 0.2 % (0.5-1.5); BG DEOXYHEMOGLOBIN 1.6 % (0.0-5.0); BG HCO3 ACT 32.7 mmol/L (22.0-26.0); BG METHEMOGLOBIN 0.5 % (0.0-1.5); BG OXYGEN SATURATION 98.4 % (92.0-98.5); BG OXYHEMOGLOBIN 97.7 % (94.0-97.0); BG PCO2 45.7 mmHg (35.0-45.0); BG PH 7.472 (7.350-7.450); BG PO2 129.5 mmHg (75.0-100.0); BG SAMPLE SITE RIGHT BRACHIAL; BG TIDAL VOLUME(mL) 450 mL; BG TOTAL HEMOGLOBIN 11.7 g/dL (12.0-18.0); BG VENT MODE VENT - A/C; BG VENT RATE 10 set
[2018-10-29 08:43] LABS: BASOPHILS % 0.2 % (0.0-2.0); HEMATOCRIT. 37.2 % (42.0-52.0); HEMOGLOBIN. 11.9 g/dL (14.0-18.0); LYMPHOCYTES % 13.2 % (20.0-50.0); MEAN CORPUSCULAR HEMOGLOBIN 29.8 pg (28.0-32.0); MEAN CORPUSCULAR VOLUME 92.8 fL (80.0-94.0); MEAN PLATELET VOLUME 9.5 fl (7.4-10.4); MONOCYTES % 3.8 % (2.0-8.0); NEUTROPHILS % 82.8 % (40.0-76.0); PLATELET 378 x1000/uL (130-400); RED BLOOD CELL COUNT 4.01 mill/uL (4.7-6.1); RED CELL DISTRIBUTION WIDTH 14.5 % (11.6-14.6)
[2018-10-29] MEDS: PANTOPRAZOLE SODIUM 40 MG/VIAL IV SCH (09:12)
[2018-10-29] MEDS: THIAMINE HCL 100MG TABLET GT SCH (09:12)
[2018-10-29] MEDS: ASPIRIN 81MG TABLET NG SCH (09:13)
[2018-10-29] MEDS: ENOXAPARIN 40MG/0.4ML SYR SUBCUT SCH (09:13)
[2018-10-29] MEDS: AMLODIPINE 5MG TABLET PO SCH ×2 (09:14→21:23)
[2018-10-29 09:28] LABS: CHLORIDE 101 mEq/L (98-107)
[2018-10-29] MEDS: CEFTRIAXONE 2 G in DEXTROSE 5% WATER 50 ML IV SCH (21:23)
[2018-10-30] VITALS (35 sets, daily range): BP systolic 89–137; BP diastolic 46–76
[2018-10-30] MEDS: IPRATROPIUM/ALBUTEROL 0.5-3(2.5)MG/3ML NEB HHN SCH ×7 (00:23→23:59)
[2018-10-30 05:44] LABS: BASOPHILS % 0.2 % (0.0-2.0); HEMATOCRIT. 38.3 % (42.0-52.0); HEMOGLOBIN. 12.5 g/dL (14.0-18.0); LYMPHOCYTES % 9.6 % (20.0-50.0); MEAN CORPUSCULAR HEMOGLOBIN 30.1 pg (28.0-32.0); MEAN CORPUSCULAR VOLUME 92.2 fL (80.0-94.0); MEAN PLATELET VOLUME 9.1 fl (7.4-10.4); NEUTROPHILS % 87.2 % (40.0-76.0); PLATELET 414 x1000/uL (130-400); RED BLOOD CELL COUNT 4.16 mill/uL (4.7-6.1); RED CELL DISTRIBUTION WIDTH 14.3 % (11.6-14.6)
[2018-10-30 05:54] LABS: CHLORIDE 99 mEq/L (98-107)
[2018-10-30] MEDS: METHYLPREDNISOLONE SOD SUCC 125 MG/2 ML VIAL IV SCH ×4 (05:54→23:35)
[2018-10-30] MEDS: PHENYTOIN 100 MG/4 ML UDC NG SCH ×3 (05:54→21:01)
[2018-10-30] MEDS: ATROPINE SULFATE 1% OPHTH 2ML SL SCH ×3 (05:55→21:01)
[2018-10-30] MEDS: PROPOFOL 10MG/ML 100ML 100 ML IV PRN ×3 (06:40→23:36)
[2018-10-30 08:16] LABS: BG BASE EXCESS 7.7 mmol/L (-2.0-2.0); BG CARBOXYHEMOGLOBIN 0.3 % (0.5-1.5); BG DEOXYHEMOGLOBIN 1.7 % (0.0-5.0); BG FRACTION INSPIRED OXYGEN 30; BG HCO3 ACT 32.5 mmol/L (22.0-26.0); BG OXYGEN SATURATION 98.3 % (92.0-98.5); BG PCO2 46.6 mmHg (35.0-45.0); BG PH 7.462 (7.350-7.450); BG PO2 116.1 mmHg (75.0-100.0); BG SAMPLE SITE RIGHT RADIAL; BG TIDAL VOLUME(mL) 450 mL; BG TOTAL HEMOGLOBIN 12.2 g/dL (12.0-18.0); BG VENT MODE VENT - A/C; BG VENT RATE 8 set
[2018-10-30] MEDS: THIAMINE HCL 100MG TABLET GT SCH (09:30)
[2018-10-30] MEDS: ENOXAPARIN 30MG/0.3ML SYR SUBCUT SCH (09:30)
[2018-10-30] MEDS: DOCUSATE SODIUM 100MG CAPSULE PO PRN (09:30)
[2018-10-30] MEDS: AMLODIPINE 5MG TABLET PO SCH ×2 (09:31→21:00)
[2018-10-30] MEDS: PANTOPRAZOLE SODIUM 40 MG/VIAL IV SCH (09:31)
[2018-10-30] MEDS: ASPIRIN 81MG TABLET NG SCH (09:31)
[2018-10-30] MEDS: CEFTRIAXONE 2 G in DEXTROSE 5% WATER 50 ML IV SCH (21:01)
[2018-10-31] VITALS (44 sets, daily range): BP systolic 90–188; BP diastolic 46–101
[2018-10-31] MEDS: IPRATROPIUM/ALBUTEROL 0.5-3(2.5)MG/3ML NEB HHN SCH ×5 (04:24→20:25)
[2018-10-31] MEDS: PROPOFOL 10MG/ML 100ML 100 ML IV PRN ×2 (04:36→17:43)
[2018-10-31] MEDS: PHENYTOIN 100 MG/4 ML UDC NG SCH ×3 (05:32→22:22)
[2018-10-31] MEDS: ATROPINE SULFATE 1% OPHTH 2ML SL SCH ×3 (05:36→22:23)
[2018-10-31] MEDS: METHYLPREDNISOLONE SOD SUCC 125 MG/2 ML VIAL IV SCH (05:36)
[2018-10-31 05:48] LABS: BASOPHILS % 0.2 % (0.0-2.0); EOSINOPHILS % 0.1 % (0.0-5.0); HEMATOCRIT. 38.2 % (42.0-52.0); HEMOGLOBIN. 12.6 g/dL (14.0-18.0); LYMPHOCYTES % 12.7 % (20.0-50.0); MEAN CORPUSCULAR HEMOGLOBIN 30.5 pg (28.0-32.0); MEAN CORPUSCULAR VOLUME 92.6 fL (80.0-94.0); MEAN PLATELET VOLUME 9.1 fl (7.4-10.4); MONOCYTES % 3.7 % (2.0-8.0); NEUTROPHILS % 83.3 % (40.0-76.0); PLATELET 453 x1000/uL (130-400); RED BLOOD CELL COUNT 4.12 mill/uL (4.7-6.1); RED CELL DISTRIBUTION WIDTH 14.3 % (11.6-14.6)
[2018-10-31 07:53] LABS: BG BASE EXCESS 7.7 mmol/L (-2.0-2.0); BG CARBOXYHEMOGLOBIN 0.4 % (0.5-1.5); BG DEOXYHEMOGLOBIN 2.2 % (0.0-5.0); BG HCO3 ACT 32.7 mmol/L (22.0-26.0); BG METHEMOGLOBIN 0.5 % (0.0-1.5); BG OXYGEN SATURATION 97.8 % (92.0-98.5); BG OXYHEMOGLOBIN 96.9 % (94.0-97.0); BG PO2 102.9 mmHg (75.0-100.0); BG SAMPLE SITE RIGHT BRACHIAL; BG TIDAL VOLUME(mL) 450 mL; BG TOTAL HEMOGLOBIN 12.9 g/dL (12.0-18.0); BG VENT MODE VENT - SIMV; BG VENT RATE 8 set
[2018-10-31 08:07] LABS: CHLORIDE 101 mEq/L (98-107)
[2018-10-31] MEDS: THIAMINE HCL 100MG TABLET GT SCH (08:40)
[2018-10-31] MEDS: PANTOPRAZOLE SODIUM 40 MG/VIAL IV SCH (08:40)
[2018-10-31] MEDS: ENOXAPARIN 30MG/0.3ML SYR SUBCUT SCH (08:40)
[2018-10-31] MEDS: AMLODIPINE 5MG TABLET PO SCH ×2 (08:41→21:00)
[2018-10-31 10:16] LABS: BG CARBOXYHEMOGLOBIN 0.4 % (0.5-1.5); BG HCO3 ACT 36.9 mmol/L (22.0-26.0); BG METHEMOGLOBIN 0.3 % (0.0-1.5); BG OXYHEMOGLOBIN 96.3 % (94.0-97.0); BG PH 7.453 (7.350-7.450); BG PO2 87.3 mmHg (75.0-100.0); BG SAMPLE SITE RIGHT BRACHIAL; BG TIDAL VOLUME(mL) 450 mL; BG TOTAL HEMOGLOBIN 13.5 g/dL (12.0-18.0); BG VENT MODE VENT - SIMV; BG VENT RATE 8 set
[2018-10-31 11:55] LABS: PHOSPHORUS 2.9 mg/dL (2.5-4.9)
[2018-10-31] MEDS: ACETAMINOPHEN 325MG TABLET PO PRN (12:57)
[2018-10-31] MEDS ORDERED: FENTANYL CITRATE/PF 50MCG/ML 2ML VIAL ONE (14:28)
[2018-10-31] MEDS ORDERED: MIDAZOLAM HCL 2 MG/2 ML VIAL ONE (14:28)
[2018-10-31] MEDS ORDERED: ROCURONIUM BROMIDE 10MG/ML VIAL 5ML IV ONE ×2 (14:28→14:49)
[2018-10-31] MEDS ORDERED: VECURONIUM BROMIDE 10 MG/VIAL IV ONE (14:56)
[2018-10-31] MEDS: METHYLPREDNISOLONE SOD SUCC 40 MG/ML VIAL IV SCH (16:00)
[2018-10-31] MEDS: CEFTRIAXONE 2 G in DEXTROSE 5% WATER 50 ML IV SCH (22:22)
[2018-11-01] VITALS (38 sets, daily range): BP systolic 104–150; BP diastolic 53–93
[2018-11-01] MEDS: PROPOFOL 10MG/ML 100ML 100 ML IV PRN ×2 (00:04→05:56)
[2018-11-01] MEDS: IPRATROPIUM/ALBUTEROL 0.5-3(2.5)MG/3ML NEB HHN SCH ×6 (00:41→20:07)
[2018-11-01] MEDS: PHENYTOIN 100 MG/4 ML UDC NG SCH ×3 (05:56→21:19)
[2018-11-01] MEDS: ATROPINE SULFATE 1% OPHTH 2ML SL SCH ×3 (05:57→23:26)
[2018-11-01 06:02] LABS: BASOPHILS % 0.4 % (0.0-2.0); EOSINOPHILS % 0.5 % (0.0-5.0); HEMATOCRIT. 36.6 % (42.0-52.0); LYMPHOCYTES % 17.9 % (20.0-50.0); MEAN CORPUSCULAR HEMOGLOBIN 30.2 pg (28.0-32.0); MEAN CORPUSCULAR VOLUME 92.1 fL (80.0-94.0); MEAN PLATELET VOLUME 8.8 fl (7.4-10.4); MONOCYTES % 4.9 % (2.0-8.0); NEUTROPHILS % 76.3 % (40.0-76.0); PLATELET 455 x1000/uL (130-400); RED BLOOD CELL COUNT 3.98 mill/uL (4.7-6.1); RED CELL DISTRIBUTION WIDTH 14.7 % (11.6-14.6)
[2018-11-01 06:12] LABS: CHLORIDE 101 mEq/L (98-107)
[2018-11-01] MEDS ORDERED: POTASSIUM CHLORIDE 20MEQ/PACKET PO NR (08:00)
[2018-11-01] MEDS: THIAMINE HCL 100MG TABLET GT SCH (08:52)
[2018-11-01] MEDS: METHYLPREDNISOLONE SOD SUCC 40 MG/ML VIAL IV SCH (08:52)
[2018-11-01] MEDS: AMLODIPINE 5MG TABLET PO SCH ×2 (08:52→21:19)
[2018-11-01] MEDS: PANTOPRAZOLE SODIUM 40 MG/VIAL IV SCH (08:52)
[2018-11-01] MEDS: ENOXAPARIN 30MG/0.3ML SYR SUBCUT SCH (08:53)
[2018-11-01] MEDS: CEFTRIAXONE 2 G in DEXTROSE 5% WATER 50 ML IV SCH (21:19)
[2018-11-01] MEDS: LORAZEPAM 2MG/ML CPJ IV PRN (22:51)
[2018-11-02] VITALS (49 sets, daily range): BP systolic 98–176; BP diastolic 41–149
[2018-11-02] MEDS: IPRATROPIUM/ALBUTEROL 0.5-3(2.5)MG/3ML NEB HHN SCH ×6 (00:02→20:00)
[2018-11-02] MEDS: DIPHENHYDRAMINE 50MG/ML VIAL IV PRN ×4 (00:20→22:17)
[2018-11-02] MEDS: LORAZEPAM 2MG/ML CPJ IV PRN ×3 (03:22→23:59)
[2018-11-02] MEDS: PHENYTOIN 100 MG/4 ML UDC NG SCH ×3 (04:46→21:03)
[2018-11-02] MEDS: ATROPINE SULFATE 1% OPHTH 2ML SL SCH ×2 (04:46→14:00)
[2018-11-02 05:19] LABS: BASOPHILS % 0.6 % (0.0-2.0); EOSINOPHILS % 0.5 % (0.0-5.0); HEMATOCRIT. 38.8 % (42.0-52.0); HEMOGLOBIN. 12.7 g/dL (14.0-18.0); LYMPHOCYTES % 12.1 % (20.0-50.0); MEAN CORPUSCULAR VOLUME 91.9 fL (80.0-94.0); MEAN PLATELET VOLUME 9.4 fl (7.4-10.4); MONOCYTES % 4.7 % (2.0-8.0); NEUTROPHILS % 82.1 % (40.0-76.0); PLATELET 430 x1000/uL (130-400); RED BLOOD CELL COUNT 4.22 mill/uL (4.7-6.1); RED CELL DISTRIBUTION WIDTH 14.5 % (11.6-14.6)
[2018-11-02 05:29] LABS: CHLORIDE 101 mEq/L (98-107); INR 1.1; PARTIAL THROMBOPLASTIN TIME 28.9 sec (23.4-31.0); PROTHROMBIN TIME 11.1 sec (9.1-11.1)
[2018-11-02] MEDS: PREDNISONE 20MG TABLET PO SCH (09:00)
[2018-11-02] MEDS: THIAMINE HCL 100MG TABLET GT SCH (09:00)
[2018-11-02] MEDS: AMLODIPINE 5MG TABLET PO SCH ×2 (09:00→21:03)
[2018-11-02] MEDS: PANTOPRAZOLE SODIUM 40 MG/VIAL IV SCH (10:36)
[2018-11-02] MEDS ORDERED: MIDAZOLAM HCL 5 MG/5 ML VIAL ONE (13:38)
[2018-11-02] MEDS ORDERED: FENTANYL CITRATE/PF 50MCG/ML 2ML VIAL ONE (13:38)
[2018-11-02] MEDS ORDERED: CEFAZOLIN 1000MG PREMIX 50 ML IV ONE (13:38)
[2018-11-02] MEDS ORDERED: CEFAZOLIN 1000MG PREMIX 50 ML IV SCH ×2 (14:21→15:00)
[2018-11-02] MEDS ORDERED: MIDAZOLAM HCL 5 MG/5 ML VIAL IV PRN (14:25)
[2018-11-02] MEDS ORDERED: FENTANYL CITRATE/PF 50MCG/ML 2ML VIAL IV PRN (14:26)
[2018-11-02] MEDS ORDERED: SODIUM CHLORIDE 0.9% 10ML VIAL ONE (16:15)
[2018-11-02] MEDS ORDERED: SIMETHICONE 40 MG/0.6 ML 30ML ONE (16:16)
[2018-11-03] VITALS (30 sets, daily range): BP systolic 113–173; BP diastolic 56–94
[2018-11-03] MEDS: IPRATROPIUM/ALBUTEROL 0.5-3(2.5)MG/3ML NEB HHN SCH ×6 (00:09→20:33)
[2018-11-03] MEDS: DIPHENHYDRAMINE 50MG/ML VIAL IV PRN ×2 (01:57→06:31)
[2018-11-03] MEDS: PHENYTOIN 100 MG/4 ML UDC NG SCH ×3 (05:27→21:45)
[2018-11-03] MEDS: LORAZEPAM 2MG/ML CPJ IV PRN ×2 (05:27→21:49)
[2018-11-03 05:31] LABS: BASOPHILS % 0.9 % (0.0-2.0); EOSINOPHILS % 1.2 % (0.0-5.0); HEMATOCRIT. 35.4 % (42.0-52.0); HEMOGLOBIN. 11.5 g/dL (14.0-18.0); LYMPHOCYTES % 15.8 % (20.0-50.0); MEAN CORPUSCULAR HEMOGLOBIN 30.1 pg (28.0-32.0); MEAN CORPUSCULAR VOLUME 92.3 fL (80.0-94.0); MEAN PLATELET VOLUME 9.3 fl (7.4-10.4); MONOCYTES % 4.7 % (2.0-8.0); NEUTROPHILS % 77.4 % (40.0-76.0); PLATELET 389 x1000/uL (130-400); RED BLOOD CELL COUNT 3.83 mill/uL (4.7-6.1); RED CELL DISTRIBUTION WIDTH 14.4 % (11.6-14.6)
[2018-11-03 05:52] LABS: CHLORIDE 101 mEq/L (98-107)
[2018-11-03] MEDS ORDERED: POTASSIUM CHLORIDE 20MEQ/PACKET PO NR (07:30)
[2018-11-03] MEDS: AMLODIPINE 5MG TABLET PO SCH ×2 (08:34→21:55)
[2018-11-03] MEDS: THIAMINE HCL 100MG TABLET GT SCH (08:35)
[2018-11-03] MEDS: PREDNISONE 20MG TABLET PO SCH (08:35)
[2018-11-03] MEDS: PANTOPRAZOLE SODIUM 40 MG/VIAL IV SCH (08:35)
[2018-11-03] MEDS: NEOMY SULF/BACITRAC ZN/POLY OINT 28GM TOP SCH (21:58)
[2018-11-03] MEDS: QUETIAPINE FUMARATE 25MG TABLET PO SCH (21:58)
[2018-11-03] MEDS: ATROPINE SULFATE 1% OPHTH 2ML SL SCH (22:00)
[2018-11-04] VITALS (12 sets, daily range): BP systolic 99–154; BP diastolic 58–100
[2018-11-04] MEDS: IPRATROPIUM/ALBUTEROL 0.5-3(2.5)MG/3ML NEB HHN SCH ×6 (00:35→21:30)
[2018-11-04] MEDS: MORPHINE SULFATE 4 MG/ML CPJ (NOT FOR IM USE) IV PRN ×2 (01:46→07:04)
[2018-11-04] MEDS: DIPHENHYDRAMINE 50MG/ML VIAL IV PRN (03:02)
[2018-11-04 05:49] LABS: BASOPHILS % 0.4 % (0.0-2.0); EOSINOPHILS % 0.8 % (0.0-5.0); HEMATOCRIT. 35.9 % (42.0-52.0); HEMOGLOBIN. 11.8 g/dL (14.0-18.0); MEAN CORPUSCULAR HEMOGLOBIN 30.5 pg (28.0-32.0); MEAN CORPUSCULAR VOLUME 93.2 fL (80.0-94.0); MEAN PLATELET VOLUME 9.2 fl (7.4-10.4); MONOCYTES % 7.4 % (2.0-8.0); NEUTROPHILS % 77.4 % (40.0-76.0); PLATELET 349 x1000/uL (130-400); RED BLOOD CELL COUNT 3.85 mill/uL (4.7-6.1); RED CELL DISTRIBUTION WIDTH 14.8 % (11.6-14.6)
[2018-11-04] MEDS: PHENYTOIN 100 MG/4 ML UDC NG SCH ×3 (06:00→21:35)
[2018-11-04 06:06] LABS: CHLORIDE 103 mEq/L (98-107)
[2018-11-04 06:23] LABS: PHOSPHORUS 2.6 mg/dL (2.5-4.9)
[2018-11-04] MEDS: ATROPINE SULFATE 1% OPHTH 2ML SL SCH ×4 (07:05→21:35)
[2018-11-04] MEDS: PREDNISONE 20MG TABLET PO SCH (08:53)
[2018-11-04] MEDS: PANTOPRAZOLE SODIUM 40 MG/VIAL IV SCH (08:53)
[2018-11-04] MEDS: THIAMINE HCL 100MG TABLET GT SCH (08:53)
[2018-11-04] MEDS: AMLODIPINE 5MG TABLET PO SCH ×2 (08:54→21:34)
[2018-11-04] MEDS: ENOXAPARIN 30MG/0.3ML SYR SUBCUT SCH ×2 (08:54→09:00)
[2018-11-04] MEDS: QUETIAPINE FUMARATE 25MG TABLET PO SCH ×2 (08:54→21:35)
[2018-11-04] MEDS: NEOMY SULF/BACITRAC ZN/POLY OINT 28GM TOP SCH ×2 (08:55→21:33)
[2018-11-04] MEDS: ONDANSETRON HCL 4MG/2ML INJ IV PRN (16:49)
[2018-11-05] VITALS (12 sets, daily range): BP systolic 119–151; BP diastolic 54–82
[2018-11-05] MEDS: LORAZEPAM 2MG/ML CPJ IV PRN ×2 (00:19→17:51)
[2018-11-05] MEDS: DIPHENHYDRAMINE 50MG/ML VIAL IV PRN (01:42)
[2018-11-05] MEDS: IPRATROPIUM/ALBUTEROL 0.5-3(2.5)MG/3ML NEB HHN SCH ×5 (01:55→20:58)
[2018-11-05] MEDS: ONDANSETRON HCL 4MG/2ML INJ IV PRN (02:21)
[2018-11-05] MEDS: ATROPINE SULFATE 1% OPHTH 2ML SL SCH ×3 (06:41→21:15)
[2018-11-05] MEDS: PHENYTOIN 100 MG/4 ML UDC NG SCH ×3 (06:41→21:13)
[2018-11-05 06:48] LABS: BASOPHILS % 0.3 % (0.0-2.0); EOSINOPHILS % 1.1 % (0.0-5.0); HEMOGLOBIN. 11.6 g/dL (14.0-18.0); MEAN CORPUSCULAR HEMOGLOBIN 30.3 pg (28.0-32.0); MEAN CORPUSCULAR VOLUME 91.6 fL (80.0-94.0); MEAN PLATELET VOLUME 9.2 fl (7.4-10.4); MONOCYTES % 5.7 % (2.0-8.0); NEUTROPHILS % 75.9 % (40.0-76.0); PLATELET 383 x1000/uL (130-400); RED BLOOD CELL COUNT 3.82 mill/uL (4.7-6.1); RED CELL DISTRIBUTION WIDTH 14.5 % (11.6-14.6)
[2018-11-05 07:34] LABS: CHLORIDE 100 mEq/L (98-107)
[2018-11-05] MEDS: THIAMINE HCL 100MG TABLET GT SCH (08:53)
[2018-11-05] MEDS: PANTOPRAZOLE SODIUM 40 MG/VIAL IV SCH (08:53)
[2018-11-05] MEDS: QUETIAPINE FUMARATE 25MG TABLET PO SCH ×2 (08:54→21:15)
[2018-11-05] MEDS: AMLODIPINE 5MG TABLET PO SCH ×2 (08:54→21:15)
[2018-11-05] MEDS: PREDNISONE 20MG TABLET PO SCH (08:54)
[2018-11-05] MEDS: ENOXAPARIN 30MG/0.3ML SYR SUBCUT SCH (09:07)
[2018-11-05] MEDS: NEOMY SULF/BACITRAC ZN/POLY OINT 28GM TOP SCH ×2 (11:44→21:13)
[2018-11-05] MEDS: CLONAZEPAM 0.5MG TABLET PO SCH (21:15)
[2018-11-05] MEDS: MORPHINE SULFATE 4 MG/ML CPJ (NOT FOR IM USE) IV PRN (22:54)
[2018-11-06] VITALS (12 sets, daily range): BP systolic 111–149; BP diastolic 54–87
[2018-11-06] MEDS: IPRATROPIUM/ALBUTEROL 0.5-3(2.5)MG/3ML NEB HHN SCH ×6 (00:33→20:54)
[2018-11-06] MEDS: ATROPINE SULFATE 1% OPHTH 2ML SL SCH ×3 (07:03→22:57)
[2018-11-06] MEDS: CLONAZEPAM 0.5MG TABLET PO SCH ×3 (07:03→22:59)
[2018-11-06] MEDS: PHENYTOIN 100 MG/4 ML UDC NG SCH ×3 (07:03→22:57)
[2018-11-06 07:58] LABS: BASOPHILS % 0.6 % (0.0-2.0); EOSINOPHILS % 1.5 % (0.0-5.0); HEMOGLOBIN. 12.1 g/dL (14.0-18.0); LYMPHOCYTES % 19.7 % (20.0-50.0); MEAN CORPUSCULAR HEMOGLOBIN 30.4 pg (28.0-32.0); MEAN PLATELET VOLUME 9.4 fl (7.4-10.4); MONOCYTES % 5.8 % (2.0-8.0); NEUTROPHILS % 72.4 % (40.0-76.0); PLATELET 364 x1000/uL (130-400); RED BLOOD CELL COUNT 3.99 mill/uL (4.7-6.1); RED CELL DISTRIBUTION WIDTH 14.4 % (11.6-14.6)
[2018-11-06 08:02] LABS: CHLORIDE 99 mEq/L (98-107)
[2018-11-06] MEDS ORDERED: PREDNISONE 20MG TABLET PO SCH (09:00)
[2018-11-06] MEDS: NEOMY SULF/BACITRAC ZN/POLY OINT 28GM TOP SCH ×2 (09:12→22:58)
[2018-11-06] MEDS: PANTOPRAZOLE SODIUM 40 MG/VIAL IV SCH (09:12)
[2018-11-06] MEDS: ENOXAPARIN 30MG/0.3ML SYR SUBCUT SCH (09:13)
[2018-11-06] MEDS: AMLODIPINE 5MG TABLET PO SCH ×2 (09:24→22:59)
[2018-11-06] MEDS: DOCUSATE SODIUM 100MG CAPSULE PO PRN (09:24)
[2018-11-06] MEDS: QUETIAPINE FUMARATE 25MG TABLET PO SCH ×2 (09:24→22:58)
[2018-11-06] MEDS: THIAMINE HCL 100MG TABLET GT SCH (09:24)
[2018-11-06 18:13] LABS: BG BASE EXCESS 2.8 mmol/L (-2.0-2.0); BG CARBOXYHEMOGLOBIN 0.3 % (0.5-1.5); BG DEOXYHEMOGLOBIN 1.7 % (0.0-5.0); BG FRACTION INSPIRED OXYGEN 30; BG HCO3 ACT 27.4 mmol/L (22.0-26.0); BG METHEMOGLOBIN 0.4 % (0.0-1.5); BG OXYGEN SATURATION 98.3 % (92.0-98.5); BG OXYHEMOGLOBIN 97.6 % (94.0-97.0); BG PH 7.432 (7.350-7.450); BG PO2 122.7 mmHg (75.0-100.0); BG PRESSURE SUPPORT 8; BG SAMPLE SITE RIGHT RADIAL; BG TOTAL HEMOGLOBIN 11.2 g/dL (12.0-18.0); BG VENT MODE VENT - CPAP
[2018-11-07] VITALS (12 sets, daily range): BP systolic 111–168; BP diastolic 57–77
[2018-11-07] MEDS: IPRATROPIUM/ALBUTEROL 0.5-3(2.5)MG/3ML NEB HHN SCH ×6 (00:18→20:24)
[2018-11-07] MEDS ORDERED: LORAZEPAM 2MG/ML CPJ IV PRN (00:30)
[2018-11-07] MEDS: MORPHINE SULFATE 4 MG/ML CPJ (NOT FOR IM USE) IV PRN (00:38)
[2018-11-07] MEDS: CLONAZEPAM 0.5MG TABLET PO SCH ×3 (06:55→21:44)
[2018-11-07] MEDS: PHENYTOIN 100 MG/4 ML UDC NG SCH ×3 (06:55→21:43)
[2018-11-07] MEDS: ATROPINE SULFATE 1% OPHTH 2ML SL SCH ×3 (06:55→21:46)
[2018-11-07] MEDS: ENOXAPARIN 30MG/0.3ML SYR SUBCUT SCH (08:39)
[2018-11-07] MEDS: THIAMINE HCL 100MG TABLET GT SCH (08:39)
[2018-11-07] MEDS: PANTOPRAZOLE SODIUM 40 MG/VIAL IV SCH (08:39)
[2018-11-07] MEDS: QUETIAPINE FUMARATE 25MG TABLET PO SCH ×2 (08:39→21:44)
[2018-11-07] MEDS: AMLODIPINE 5MG TABLET PO SCH ×2 (08:39→21:43)
[2018-11-07] MEDS: NEOMY SULF/BACITRAC ZN/POLY OINT 28GM TOP SCH ×2 (08:40→21:46)
[2018-11-08] VITALS (15 sets, daily range): BP systolic 95–145; BP diastolic 48–78
[2018-11-08] MEDS: IPRATROPIUM/ALBUTEROL 0.5-3(2.5)MG/3ML NEB HHN SCH ×6 (00:41→16:02)
[2018-11-08] MEDS: CLONAZEPAM 0.5MG TABLET PO SCH ×3 (06:44→20:31)
[2018-11-08] MEDS: PHENYTOIN 100 MG/4 ML UDC NG SCH ×3 (06:44→20:33)
[2018-11-08] MEDS: ATROPINE SULFATE 1% OPHTH 2ML SL SCH ×3 (06:45→20:34)
[2018-11-08 07:02] LABS: BASOPHILS % 0.8 % (0.0-2.0); EOSINOPHILS % 1.4 % (0.0-5.0); HEMATOCRIT. 35.6 % (42.0-52.0); HEMOGLOBIN. 12.1 g/dL (14.0-18.0); LYMPHOCYTES % 17.8 % (20.0-50.0); MEAN CORPUSCULAR VOLUME 91.6 fL (80.0-94.0); MEAN PLATELET VOLUME 9.9 fl (7.4-10.4); MONOCYTES % 6.5 % (2.0-8.0); NEUTROPHILS % 73.5 % (40.0-76.0); PLATELET 300 x1000/uL (130-400); RED BLOOD CELL COUNT 3.89 mill/uL (4.7-6.1); RED CELL DISTRIBUTION WIDTH 14.5 % (11.6-14.6)
[2018-11-08 07:42] LABS: CHLORIDE 102 mEq/L (98-107)
[2018-11-08] MEDS: PANTOPRAZOLE SODIUM 40 MG/VIAL IV SCH (08:15)
[2018-11-08] MEDS: QUETIAPINE FUMARATE 25MG TABLET PO SCH ×2 (08:16→20:31)
[2018-11-08] MEDS: AMLODIPINE 5MG TABLET PO SCH ×2 (08:16→20:31)
[2018-11-08] MEDS: THIAMINE HCL 100MG TABLET GT SCH (08:16)
[2018-11-08] MEDS: ENOXAPARIN 30MG/0.3ML SYR SUBCUT SCH (08:16)
[2018-11-08] MEDS: NEOMY SULF/BACITRAC ZN/POLY OINT 28GM TOP SCH ×2 (08:23→20:35)
[2018-11-08] MEDS ORDERED: ACETYLCYSTEINE 100MG/ML 10% VIAL 4ML INH SCH (22:00)
[2018-11-09] VITALS (17 sets, daily range): BP systolic 95–130; BP diastolic 45–67
[2018-11-09] MEDS: PHENYTOIN 100 MG/4 ML UDC NG SCH ×2 (06:55→14:15)
[2018-11-09] MEDS: CLONAZEPAM 0.5MG TABLET PO SCH ×2 (06:55→14:15)
[2018-11-09] MEDS: ATROPINE SULFATE 1% OPHTH 2ML SL SCH ×2 (06:55→14:17)
[2018-11-09] MEDS: MORPHINE SULFATE 4 MG/ML CPJ (NOT FOR IM USE) IV PRN ×2 (06:56→11:21)
[2018-11-09] MEDS: IPRATROPIUM/ALBUTEROL 0.5-3(2.5)MG/3ML NEB HHN SCH ×3 (08:08→15:47)
[2018-11-09] MEDS: PANTOPRAZOLE SODIUM 40 MG/VIAL IV SCH (09:37)
[2018-11-09] MEDS: ENOXAPARIN 30MG/0.3ML SYR SUBCUT SCH (09:39)
[2018-11-09] MEDS: AMLODIPINE 5MG TABLET PO SCH (09:39)
[2018-11-09] MEDS: NEOMY SULF/BACITRAC ZN/POLY OINT 28GM TOP SCH (09:40)
[2018-11-09] MEDS: THIAMINE HCL 100MG TABLET GT SCH (09:40)
[2018-11-09] MEDS: QUETIAPINE FUMARATE 25MG TABLET PO SCH (09:40)
== END 2018-11-09 21:00 | DRG 4 ==
LOC: ER 08:30 → 6WST 11:33 → EDBEDREQ 11:35 → EDBEDREQTM 11:35 → ENRESERV 11:45 → 6WST 20:57 → CVICU 10-20 04:20 → 5EST 11-03 16:08
PROVIDERS: ADMIT Internal Medicine; ATTEND Internal Medicine
PROC: 0BH17EZ Insertion of Endotracheal Airway into Trachea, Via Natural or Artificial Opening (ICD-10-PCS; 2018-10-20)
PROC: 0CJS8ZZ Inspection of Larynx, Via Natural or Artificial Opening Endoscopic (ICD-10-PCS; 2018-10-20)
PROC: 5A1945Z Respiratory Ventilation, 24-96 Consecutive Hours (ICD-10-PCS; 2018-10-20)
PROC: 0BH17EZ Insertion of Endotracheal Airway into Trachea, Via Natural or Artificial Opening (ICD-10-PCS; 2018-10-23)
PROC: 5A1945Z Respiratory Ventilation, 24-96 Consecutive Hours (ICD-10-PCS; 2018-10-23)
PROC: 5A1955Z Respiratory Ventilation, Greater than 96 Consecutive Hours (ICD-10-PCS; principal; 2018-10-25)
PROC: 0BH17EZ Insertion of Endotracheal Airway into Trachea, Via Natural or Artificial Opening (ICD-10-PCS; 2018-10-25)
PROC: 0CJS8ZZ Inspection of Larynx, Via Natural or Artificial Opening Endoscopic (ICD-10-PCS; 2018-10-25)
PROC: 5A12012 Performance of Cardiac Output, Single, Manual (ICD-10-PCS; 2018-10-25)
PROC: 06HY33Z Insertion of Infusion Device into Lower Vein, Percutaneous Approach (ICD-10-PCS; 2018-10-25)
PROC: 0B110F4 Bypass Trachea to Cutaneous with Tracheostomy Device, Open Approach (ICD-10-PCS; 2018-10-31)
PROC: 0GBJ0ZZ Excision of Thyroid Gland Isthmus, Open Approach (ICD-10-PCS; 2018-10-31)
PROC: 0DH63UZ Insertion of Feeding Device into Stomach, Percutaneous Approach (ICD-10-PCS; 2018-11-02)
DX: A40.1 Sepsis due to streptococcus, group B (principal); J69.0 Pneumonitis due to inhalation of food and vomit; N17.0 Acute kidney failure with tubular necrosis; E43 Unspecified severe protein-calorie malnutrition; G93.41 Metabolic encephalopathy; J96.21 Acute and chronic respiratory failure with hypoxia; R13.10 Dysphagia, unspecified; R64 Cachexia; I46.9 Cardiac arrest, cause unspecified; J38.4 Edema of larynx; I11.0 Hypertensive heart disease with heart failure; J39.8 Other specified diseases of upper respiratory tract; D64.9 Anemia, unspecified; L89.890 Pressure ulcer of other site, unstageable; E78.00 Pure hypercholesterolemia, unspecified; E78.5 Hyperlipidemia, unspecified; R73.9 Hyperglycemia, unspecified; J44.9 Chronic obstructive pulmonary disease, unspecified; R33.9 Retention of urine, unspecified; I50.32 Chronic diastolic (congestive) heart failure; E83.39 Other disorders of phosphorus metabolism; E86.0 Dehydration; E87.6 Hypokalemia; F17.200 Nicotine dependence, unspecified, uncomplicated; G40.909 Epilepsy, unspecified, not intractable, without status epilepticus; I25.10 Atherosclerotic heart disease of native coronary artery without angina pectoris; J96.22 Acute and chronic respiratory failure with hypercapnia; T38.0X5A Adverse effect of glucocorticoids and synthetic analogues, initial encounter; R31.0 Gross hematuria; Z79.899 Other long term (current) drug therapy; Z93.1 Gastrostomy status; Z99.11 Dependence on respirator [ventilator] status; Z68.1 Body mass index [BMI] 19.9 or less, adult; Z86.73 Personal history of transient ischemic attack (TIA), and cerebral infarction without residual deficits; Z78.1 Physical restraint status; Y92.89 Other specified places as the place of occurrence of the external cause
CPT/HCPCS: 31500; 36415; 36600; 70490; 71045; 71250; 74176; 76770; 80048; 80061; 80185; 80202; 80305; 82375; 82550; 82805; 82962; 83036; 83735; 83880; 84100; 84134; 84153; 84439; 84443; 84478; 84484; 85379; 87070; 87804; 92610; 92950; 93005; 93306; 94003; 94640; 96365; 96366; 96375; 99285; A6261; C1893; C9113; J0330; J0360; J0690; J0696; J1200; J1650; J1953; J1956; J2060; J2250; J2270; J2405; J2543; J2704; J2920; J2930; J3010; J3370; J3475; J3490; J7040; J7050; J7060; J7512; J7608; J7611; J7620; J7626; A4315; G0103